=== PATIENT | male | born 1940 | race Caucasian/White ===

== ENCOUNTER 2016-06-01 17:14 | Emergency (ER) | payer BC, OTHER ==
[~2016-06-01] VITALS: Ht 165.1 cm; Wt 74.8 kg
[~2016-06-01 17:14] MED LIST: ATV5X PO; CARB25TA12 PO; RANI150T2 PO
[2016-06-01 17:23] VITALS: BP 151/84; PULSE 101; TEMP 36.5; O2SAT 96; Ht 165.1 cm; Wt 74.8 kg
[2016-12-13] MEDS ORDERED: OXYC-57 PO (09:19)
[2016-12-26] MEDS ORDERED: RIVA1TAB7 PO (13:46)
[2016-12-26] MEDS ORDERED: METH4PAK PO (13:46)
== END 2016-06-01 18:47 | disposition left against medical advice (07) ==
LOC: C.EDB 17:15
DX: R10.9 Unspecified abdominal pain (principal)

== ENCOUNTER 2016-12-11 08:57 | Inpatient (IN) | payer BC, OTHER ==
[2016-12-11] VITALS (9 sets, daily range): BP systolic 158–171; BP diastolic 73–89; PULSE 65–73; TEMP 36.4–36.6; O2SAT 97–100; Ht 165.1 cm; Wt 72.7 kg
[~2016-12-11] VITALS: Ht 165.1 cm; Wt 72.7 kg
[~2016-12-11 08:57] MED LIST changes: +CEFAZOLIN 2000 MG/60 ML D5W 60 ML IV SCH
[2016-12-11] MEDS ORDERED: SODIUM CHLORIDE 0.9% 1000ML 500 ML IV STA (09:59)
[2016-12-11] MEDS ORDERED: SODIUM CHLORIDE 0.9% 1000ML 1,000 ML IV STA (09:59)
[2016-12-11 10:28] LABS: BASO % 0.2 %; BASO ABS # 0.02 K/uL (0-0.2); COMPLETE YES; EOS % 0.6 %; HEMATOCRIT 43.9 % (42-52); IG% 0.3 %; LYMPH % 7.8 %; LYMPH ABS # 0.75 K/uL (1.2-3.4); MEAN CELL VOLUME 90.7 fL (80-100); MEAN CORPUSCULAR HEMOGLOBIN 31.4 pg (25-34); MEAN CORPUSCULAR HGB CONC 34.6 g/dl (32-36); MEAN PLATELET VOLUME 9.3 fL (7.4-10.4); MONO % 6.5 %; NEUT % 84.6 %; PLATELET COUNT 233 K/uL (130-400); RED BLOOD COUNT 4.84 M/uL (4.7-6.1); WHITE BLOOD COUNT 9.62 K/uL (4.8-10.8)
[2016-12-11 10:46] LABS: CALCIUM 8.8 mg/dl (8.5-10.1); POTASSIUM 3.7 mmol/L (3.5-5.1)
[2016-12-11 10:49] LABS: ALB/GLOB RATIO 1.1 (0.9-2)
--- NOTE | 2016-12-11 11:16 | DIAGNOSTIC IMAGING REPORT ---
ABDOMEN 2VIEW W/PA CHEST RTN HISTORY: 76 years-old Male ABDOMINAL PAIN COMPARISON: Chest radiograph 12/14/2014 TECHNIQUE: PA view of the chest with erect and supine views of the abdomen. FINDINGS: Cardiomediastinal and hilar silhouettes are within normal limits. There is atherosclerosis of the aorta. No pneumothorax, pleural effusion or focal airspace consolidation. Degenerative changes are seen about the shoulders. No pneumoperitoneum on the upright projection. Bowel gas pattern is nonobstructive. No urolithiasis identified. Mild/moderate volume of formed stool seen throughout the colon. Phleboliths are seen within the pelvis. There is mild convex left curvature of the lumbar spine with multilevel discogenic degenerative changes of the spine. Moderate degenerative changes involving the hips. IMPRESSION: 1. No acute cardiopulmonary process. 2. Nonobstructive bowel gas pattern. The above report was generated using voice recognition software. It may contain grammatical, syntax or spelling errors. Electronically signed by: Chris Cook M.D. 12/11/2016 11:14 AM Dictated Date/Time: 12/11/2016 11:13 AM
[2016-12-11] MEDS ORDERED: OPTIRAY 320 IV PRN (11:30)
[2016-12-11 11:52] LABS: URINE APPEARANCE CLEAR (CLEAR); URINE BILIRUBIN NEG (NEG); URINE COLOR YELLOW; URINE NITRITE NEG (NEG); UROBILINOGEN NEG (NEG)
[2016-12-11 12:00] LABS: MANUAL MICROSCOPIC REQUIRED? NO; REVIEW REQ? NO
--- NOTE | 2016-12-11 12:16 | DIAGNOSTIC IMAGING REPORT ---
ABD/PELVIS IV CONTRAST ONLY CT DOSE: 623.95 mGycm HISTORY: Pain LEFT ABD PAIN TECHNIQUE: Multiaxial CT images of the abdomen and pelvis were performed following the use of intravenous contrast. A dose lowering technique was utilized adhering to the principles of ALARA. COMPARISON STUDY: 06/14/2014 FINDINGS: Lung bases are clear. Liver spleen and pancreas are uniform throughout. No evidence for gallbladder distention. Kidneys negative for hydronephrosis. Unchanged 5.3 cm left renal cyst. No evidence for renal hydronephrosis. Bowel pattern is nonobstructive. Left inguinal hernia containing a focal 3.5 cm serpiginous loop of small bowel. This. Be a nonobstructive finding. May be a slight degree of associated small bowel wall thickening. Normal appendix. No evidence for pneumatosis or colonic distention. IMPRESSION: 1. 5.3 cm left renal cyst unchanged from the prior study. 2. Nonobstructive bowel pattern. 3. 3.5 cm left inguinal hernia containing a small loop of small bowel possibly with a mild component of wall thickening of the small bowel immediately proximal as well as distal to the hernia. Minimal associated inflammatory wall changes not excluded although no true obstruction is confirmed The above report was generated using voice recognition software. It may contain grammatical, syntax or spelling errors. Electronically signed by: Reymundo Branch M.D. 12/11/2016 12:14 PM Dictated Date/Time: 12/11/2016 12:08 PM
--- NOTE | 2016-12-11 12:49 | EMERGENCY ROOM VISIT NOTE ---
ED Visit Note First contact with patient: 09:27 76-year-old male with left lower quadrant abdominal pain was fully a value by Anna Don PA-C. Please see her note. I also independently evaluated the patient. CT reveals a left inguinal hernia with a loop of bowel. The patient will require further evaluation by surgery.
[2016-12-11] MEDS ORDERED: MoRPHine SULFATE 4 MG/ML 1 ML CARP\\VIAL IV STA (13:00)
[2016-12-11] MEDS ORDERED: ONDANSETRON INJ 2 MG/ML 2 ML VIAL IV STA ×2 (13:00→16:05)
--- NOTE | 2016-12-11 15:10 | History and Physical ---
History & Physical Date Dec 11, 2016. Chief Complaint left groin mass/pain History of Present Illness The patient is a 76 year old male with incarcerated left inguinal hernia. He came to ED for evaluation of abdominal pain that began acutely this morning. He states that it is sharp and constant. He was nausea but no vomiting. He had a normal bowel movement yesterday. He reports that his last oral intake was last evening. Past Medical/Surgical History Medical Problems: (1) Acid reflux (2) Arthritis (3) Intermittent abdominal pain (4) Left shoulder pain (5) No known problems (6) Parkinson disease (7) Rash (8) Rotator cuff injury (9) Stomach problems (10) Urinary frequency Additional History Hepatic Disease: No Endocrine Disorder: No Kidney Disease: Yes Hypertension: No Heart Disease: No Bleeding Tendencies: No Infectious Diseases: No Other: Parkinson's disease GERD Kidney stones Allergies Coded Allergies: No Known Allergies (Unverified , 12/11/16) Home Medications Scheduled Carbidopa/Levodopa (Sinemet 25MG/100MG), 1.5 TAB PO TIDM Ranitidine HCl (Ranitidine HCl), 150 MG PO BID Scheduled PRN Lorazepam (Lorazepam), 0.5 MG PO BID PRN for Anxiety Physical Examination Skin: warm/dry, no rash Eyes: normal inspection, EOMI, sclerae normal ENT: normal ENT inspection, pharynx normal Head: normocephalic, atraumatic Neck: supple, no adenopathy, trachea midline Respiratory/Chest: lungs clear, normal breath sounds, no respiratory distress Cardiovascular: regular rate, rhythm, no edema, no murmur Abdomen / GI: normal bowel sounds, non tender Back: normal inspection Extremities: normal inspection, normal range of motion Genitourinary - Male: normal male genitalia, normal phallus, normal testicles, + pertinent finding (incarcerated left inguinal hernia; tender; minimal erythema ) Neurologic/Psych: no motor/sensory deficits, alert, oriented x 3 Addiitonal Comments: ABD/PELVIS IV CONTRAST ONLY CT DOSE: 623.95 mGycm HISTORY: Pain LEFT ABD PAIN TECHNIQUE: Multiaxial CT images of the abdomen and pelvis were performed following the use of intravenous contrast. A dose lowering technique was utilized adhering to the principles of ALARA. COMPARISON STUDY: 06/14/2014 FINDINGS: Lung bases are clear. Liver spleen and pancreas are uniform throughout. No evidence for gallbladder distention. Kidneys negative for hydronephrosis. Unchanged 5.3 cm left renal cyst. No evidence for renal hydronephrosis. Bowel pattern is nonobstructive. Left inguinal hernia containing a focal 3.5 cm serpiginous loop of small bowel. This. Be a nonobstructive finding. May be a slight degree of associated small bowel wall thickening. Normal appendix. No evidence for pneumatosis or colonic distention. IMPRESSION: 1. 5.3 cm left renal cyst unchanged from the prior study. 2. Nonobstructive bowel pattern. 3. 3.5 cm left inguinal hernia containing a small loop of small bowel possibly with a mild component of wall thickening of the small bowel immediately proximal as well as distal to the hernia. Minimal associated inflammatory wall changes not excluded although no true obstruction is confirmed Diagnosis Incarcerated left inguinal hernia ASA Classification: ASA Class III Plan of Treatment Will plan left groin exploration nwith left inguinal hernia repair -IVF -IV abx
[2016-12-11] MEDS ORDERED: FENTANYL CITRATE INJ 50 MCG/1 ML 2 ML VIAL ONE ×2 (15:57→16:54)
[2016-12-11] MEDS ORDERED: MIDAZOLAM HCL 1 MG/ML 2ML VIAL ONE (15:57)
--- NOTE | 2016-12-11 16:07 | EMERGENCY ROOM VISIT NOTE ---
History First contact with patient: 09:27 Chief Complaint: ABDOMINAL PAIN Stated Complaint: SEVERE ABD. PAIN Nursing Triage Summary: Woke up this AM with pain in stomach, "like I want to throw up but I cant because its too painful." LBM was 2 days ago. History of Present Illness Patient is a 76-year-old male who presents to the emergency department accompanied by his for evaluation of abdominal pain that began acutely this morning. He states his symptoms woke up him up at around 7:00. He notes generalized dominant pain. He states that it is sharp and constant. He rates it an 8/10. He was nauseous, and had dry heaves but did not frankly vomit. He states it hurts to move. He reports a normal bowel movement yesterday, he does report having to strain slightly, but states the bowel movement was soft. He reports that his last oral intake was a banana and milk last evening. He feels bloated and pressure like he has gas, but cannot relieve the pressure. He denies any chest pain, palpitations or shortness of breath. He denies a back or flank pain. No history of abdominal surgeries. He has had urinary frequency for several months, he has been incontinent on occasion, and wears an adult diaper due to the urinary frequency. He has not seen a physician for this. He denies dysuria. He has not had any fevers. He has never had pain similar to this. He has never had a colonoscopy to his knowledge. He has a known inguinal hernia, that his doctor has been following. Review of Systems Review of systems as per HPI. All other systems reviewed were negative. 10 systems reviewed. Past Medical/Surgical History Medical Problems: (1) Acid reflux (2) Arthritis (3) Intermittent abdominal pain (4) Left shoulder pain (5) No known problems (6) Parkinson disease (7) Rash (8) Rotator cuff injury (9) Stomach problems (10) Urinary frequency Electronic medical records are reviewed and summarized as above/below. See Problem List. Family History FH: heart disease Kidney disease Kidney stones Social History Smoking Status: Former Smoker Drug Use: none Marital Status: Housing Status: lives with family Occupation Status: employed Current/Historical Medications Scheduled Carbidopa/Levodopa (Sinemet 25MG/100MG), 1.5 TAB PO TIDM Ranitidine HCl (Ranitidine HCl), 150 MG PO BID Scheduled PRN Lorazepam (Lorazepam), 0.5 MG PO BID PRN for Anxiety Physical Exam Vital Signs Date Time Temp Pulse Resp B/P (MAP) Pulse Ox O2 Delivery O2 Flow Rate FiO2 12/11/16 15:54 36.6 68 16 176/76 (109) 96 Room Air 12/11/16 15:00 70 18 164/89 98 Room Air 12/11/16 14:06 72 12/11/16 12:56 66 20 166/72 97 Room Air 12/11/16 11:18 61 18 136/66 97 Room Air 12/11/16 10:10 66 12/11/16 10:07 65 20 179/91 96 Room Air 12/11/16 09:02 36.4 68 17 156/92 99 Room Air Physical Exam CONSTITUTIONAL: Patient is an uncomfortable, elderly 76-year-old male who is awake and alert and in mild distress due to his abdominal discomfort. EYES: Pupils equal, round, reactive to light and accommodation. EOMs intact without nystagmus. Sclera are anicteric. ENT: Tympanic membranes intact, with normal landmarks. External canals are clear. Oral and nasopharynx are clear. Mucous membranes are moist, no lesions , tongue and gums appear normal. NECK: No bruits auscultated. Supple without lymphadenopathy. No thyromegaly. No meningeal signs. Full active range of motion without discomfort. CARDIOVASCULAR: Regular rate and rhythm, with normal S1 and S2, no murmur or gallop or rub is heard. No carotid bruits auscultated. No JVD. Peripheral pulses easily palpable. RESPIRATORY: Breath sounds equal and clear to auscultation without wheezes, rales, or rhonchi heard. Full and equal chest expansion without accessory muscle use or retractions. ABDOMEN: Bowel sounds are present. Abdomen is soft, nondistended, nontender to percussion throughout. He is tender to palpation, primarily the left lower quadrant, there is no guarding or rebound. Tender left inguinal hernia noted. INTEGUMENTARY: No lesions or rash, normal skin turgor. LYMPH: No lymphadenopathy. Medical Decision & Procedures ER Provider Diagnostic Interpretation: ABD/PELVIS IV CONTRAST ONLY CT DOSE: 623.95 mGycm HISTORY: Pain LEFT ABD PAIN TECHNIQUE: Multiaxial CT images of the abdomen and pelvis were performed following the use of intravenous contrast. A dose lowering technique was utilized adhering to the principles of ALARA. COMPARISON STUDY: 06/14/2014 FINDINGS: Lung bases are clear. Liver spleen and pancreas are uniform throughout. No evidence for gallbladder distention. Kidneys negative for hydronephrosis. Unchanged 5.3 cm left renal cyst. No evidence for renal hydronephrosis. Bowel pattern is nonobstructive. Left inguinal hernia containing a focal 3.5 cm serpiginous loop of small bowel. This. Be a nonobstructive finding. May be a slight degree of associated small bowel wall thickening. Normal appendix. No evidence for pneumatosis or colonic distention. IMPRESSION: 1. 5.3 cm left renal cyst unchanged from the prior study. 2. Nonobstructive bowel pattern. 3. 3.5 cm left inguinal hernia containing a small loop of small bowel possibly with a mild component of wall thickening of the small bowel immediately proximal as well as distal to the hernia. Minimal associated inflammatory wall changes not excluded although no true obstruction is confirmed ABDOMEN 2VIEW W/PA CHEST RTN HISTORY: 76 years-old Male ABDOMINAL PAIN COMPARISON: Chest radiograph 12/14/2014 TECHNIQUE: PA view of the chest with erect and supine views of the abdomen. FINDINGS: Cardiomediastinal and hilar silhouettes are within normal limits. There is atherosclerosis of the aorta. No pneumothorax, pleural effusion or focal airspace consolidation. Degenerative changes are seen about the shoulders. No pneumoperitoneum on the upright projection. Bowel gas pattern is nonobstructive. No urolithiasis identified. Mild/moderate volume of formed stool seen throughout the colon. Phleboliths are seen within the pelvis. There is mild convex left curvature of the lumbar spine with multilevel discogenic degenerative changes of the spine. Moderate degenerative changes involving the hips. IMPRESSION: 1. No acute cardiopulmonary process. 2. Nonobstructive bowel gas pattern. Laboratory Results 12/11/16 10:10 Red Blood Count 4.84, Mean Corpuscular Volume 90.7, Mean Corpuscular Hemoglobin 31.4, Mean Corpuscular Hemoglobin Concent 34.6, Mean Platelet Volume 9.3, Neutrophils (%) (Auto) 84.6, Lymphocytes (%) (Auto) 7.8, Monocytes (%) (Auto) 6.5, Eosinophils (%) (Auto) 0.6, Basophils (%) (Auto) 0.2, Neutrophils # (Auto) 8.13, Lymphocytes # (Auto) 0.75, Monocytes # (Auto) 0.63, Eosinophils # (Auto) 0.06, Basophils # (Auto) 0.02 12/11/16 10:10 Test 12/11/16 10:10 12/11/16 11:30 White Blood Count 9.62 K/uL (4.8-10.8) Red Blood Count 4.84 M/uL (4.7-6.1) Hemoglobin 15.2 g/dL (14.0-18.0) Hematocrit 43.9 % (42-52) Mean Corpuscular Volume 90.7 fL (80-100) Mean Corpuscular Hemoglobin 31.4 pg (25-34) Mean Corpuscular Hemoglobin Concent 34.6 g/dl (32-36) Platelet Count 233 K/uL (130-400) Mean Platelet Volume 9.3 fL (7.4-10.4) Neutrophils (%) (Auto) 84.6 % Lymphocytes (%) (Auto) 7.8 % Monocytes (%) (Auto) 6.5 % Eosinophils (%) (Auto) 0.6 % Basophils (%) (Auto) 0.2 % Neutrophils # (Auto) 8.13 K/uL (1.4-6.5) Lymphocytes # (Auto) 0.75 K/uL (1.2-3.4) Monocytes # (Auto) 0.63 K/uL (0.11-0.59) Eosinophils # (Auto) 0.06 K/uL (0-0.5) Basophils # (Auto) 0.02 K/uL (0-0.2) RDW Standard Deviation 45.8 fL (36.4-46.3) RDW Coefficient of Variation 13.7 % (11.5-14.5) Immature Granulocyte % (Auto) 0.3 % Immature Granulocyte # (Auto) 0.03 K/uL (0.00-0.02) Anion Gap 6.0 mmol/L (3-11) Est Creatinine Clear Calc Drug Dose 53.8 ml/min Estimated GFR () 83.8 Estimated GFR (Non- 72.3 BUN/Creatinine Ratio 18.0 (10-20) Calcium Level 8.8 mg/dl (8.5-10.1) Total Bilirubin 0.8 mg/dl (0.2-1) Aspartate Amino Transf (AST/SGOT) 16 U/L (15-37) Alanine Aminotransferase (ALT/SGPT) 22 U/L (12-78) Alkaline Phosphatase 93 U/L (45-117) Total Protein 7.6 gm/dl (6.4-8.2) Albumin 3.9 gm/dl (3.4-5.0) Globulin 3.7 gm/dl (2.5-4.0) Albumin/Globulin Ratio 1.1 (0.9-2) Lipase 76 U/L (73-393) Urine Color YELLOW Urine Appearance CLEAR (CLEAR) Urine pH 7.0 (4.5-7.5) Urine Specific [place] 1.020 (1.000-1.030) Urine Protein NEG (NEG) Urine Glucose (UA) NEG (NEG) Urine Ketones NEG (NEG) Urine Occult Blood NEG (NEG) Urine Nitrite NEG (NEG) Urine Bilirubin NEG (NEG) Urine Urobilinogen NEG (NEG) Urine Leukocyte Esterase NEG (NEG) Medications Administered Medications (Trade) Dose Ordered Sig/Bernardino Route Start Time Stop Time Status Last Admin Dose Admin Sodium Chloride 500 ml @ 999 mls/hr Q31M STAT IV 12/11/16 09:59 12/11/16 10:29 DC 12/11/16 10:34 999 MLS/HR Sodium Chloride 1,000 ml @ 250 mls/hr Q4H STAT IV 12/11/16 09:59 12/11/16 13:58 DC 12/11/16 11:17 250 MLS/HR Ondansetron HCl (Zofran Inj) 4 mg NOW STAT IV 12/11/16 13:00 12/11/16 13:01 DC 12/11/16 13:05 4 MG Morphine Sulfate (MoRPHine SULFATE INJ) 4 mg NOW STAT IV 12/11/16 13:00 12/11/16 13:01 DC 12/11/16 13:05 4 MG ED Course The patient was seen and evaluated as above. His old records were reviewed. IV lock was needed and he was hydrated with normal saline solution. He initially declined any medication for discomfort. CBC with differential, CMP, lipase and urinalysis were collected. Acute abdominal series was obtained and did not demonstrate any evidence for obstruction. Laboratory studies noted a normal white count of 9000 100, H&H 15 and 43. Electrolytes are within normal limits. Liver functions are not elevated. Lipase is normal. Urinalysis clear without signs of infection. CT scan of the abdomen and pelvis with IV contrast was obtained and consistent with a left inguinal hernia containing a small loop of small bowel. Given his physical exam findings, there was concern for an incarcerated hernia. Laboratory and diagnostic imaging studies were reviewed with attending physician , who also evaluated the patient. History and presentation were discussed with general surgery, Dr. Torres, who evaluated the patient in the ER and will take him to the OR for surgical intervention. Differential diagnoses entertained included diverticulitis, UTI, pyelonephritis , renal colic, mass or malignancy, bowel obstruction, perforation, incarcerated hernia, among others. Medical Decision See Emergency Department course. Medication Reconcilliation Current Medication List: was personally reviewed by me Blood Pressure Screening Patient's blood pressure: Elevated blood pressure Blood pressure disposition: Elevated BP felt to be situational Impression Primary Impression: Incarcerated left inguinal hernia Departure Information Dispostion Being Evaluated By Surgeon Referrals Neville Sosa M.D. (PCP) Patient Instructions My [facility]
[2016-12-11] MEDS ORDERED: NURSING VERBAL MED ORDER ONE (16:15)
[2016-12-11] MEDS ORDERED: BUPIVACAINE/EPINEPHRINE 0.5% MPF 1:200,000 10 ML VIAL ONE (16:16)
[2016-12-11] MEDS ORDERED: MAGNESIUM HYDROXIDE SUSP 30 ML UDC PO PRN (16:30)
[2016-12-11] MEDS ORDERED: ACETAMINOPHEN 325 MG TAB PO PRN (16:30)
[2016-12-11] MEDS ORDERED: MoRPHine SULFATE 2 MG/ML CARP IV PRN (16:30)
[2016-12-11] MEDS ORDERED: OXYCODONE/ACETAMINOPHEN 5-325 TAB PO PRN (16:30)
[2016-12-11] MEDS ORDERED: FENTANYL CITRATE INJ 50 MCG/1 ML 2 ML VIAL IV PRN (16:30)
[2016-12-11] MEDS ORDERED: ATROPINE SULFATE 0.1 MG/ML 5ML SYR IV PRN (16:30)
[2016-12-11] MEDS ORDERED: ONDANSETRON INJ 2 MG/ML 2 ML VIAL IV PRN ×2 (16:30)
[2016-12-11] MEDS ORDERED: ALUMINUM/MAGNESIUM/SIMETH (MAALOX MAX) 30 ML UDC PO PRN (16:30)
[2016-12-11] MEDS ORDERED: PROPOFOL IV EMULSION 10 MG/ML 20 ML VIAL IV ONE (16:54)
[2016-12-11] MEDS ORDERED: PHENYLEPHRINE 100MCG/ML 5ML SYR ONE (16:54)
[2016-12-11] MEDS ORDERED: LIDOCAINE HCL 2% 2 ML VIAL (20MG/ML) ONE (16:54)
[2016-12-11] MEDS ORDERED: MoRPHine SULFATE 4 MG/ML 1 ML CARP\\VIAL IV PRN (17:00)
--- NOTE | 2016-12-11 17:26 | [facility] Post Operative Brief Note ---
Immediate Operative Summary Operative Date Dec 11, 2016. Pre-Operative Diagnosis Incarcerated Left Inguinal Hernia Post-Operative Diagnosis Incarcerated Left Inguinal Hernia Procedure(s) Performed Left Inguinal Hernia Repair with Mesh, Left Groin Exploration Surgeon Dr. Torres Pathology Tech Surgeon(s) None Estimated Blood Loss 25cc Findings Reduced SB intra-op Specimens Specimen A. Hernia sack and cord lipoma Drains none Anesthesia GETA w/marcaine Complication(s) None Disposition Recovery Room / PACU
[2016-12-11] MEDS ORDERED: EpHEDrine SULFATE 50MG/5ML SYR ONE (17:45)
[2016-12-11] MEDS ORDERED: DEXAMETHASONE SOD INJ 4 MG/ML VIAL ONE (17:45)
[2016-12-11] MEDS ORDERED: ONDANSETRON INJ 2 MG/ML 2 ML VIAL ONE (17:45)
--- NOTE | 2016-12-11 18:28 | Anesthesiology Progress Note ---
Anesthesia Post Op Note Date & Time Dec 11, 2016 at 18:28 Vital Signs Pain Intensity: 0 Vital Signs Past 12 Hours Date Time Temp Pulse Resp B/P (MAP) Pulse Ox O2 Delivery O2 Flow Rate FiO2 12/11/16 18:07 36.8 72 16 145/80 100 Nasal Cannula 10 12/11/16 17:57 73 13 12/11/16 17:57 74 13 100 12/11/16 17:56 146/78 12/11/16 17:52 73 14 99 12/11/16 17:52 73 14 12/11/16 17:51 148/78 12/11/16 17:47 82 14 98 12/11/16 17:47 80 14 12/11/16 17:46 74 15 12/11/16 17:46 76 15 149/77 98 12/11/16 17:41 82 14 12/11/16 17:41 82 14 155/80 99 12/11/16 17:36 88 23 145/81 100 12/11/16 17:36 88 23 12/11/16 17:32 155/96 12/11/16 17:31 91 18 99 12/11/16 17:31 36.5 90 16 155/96 99 Mask 10 12/11/16 17:31 91 18 12/11/16 15:54 36.6 68 16 176/76 (109) 96 Room Air 12/11/16 15:00 70 18 164/89 98 Room Air 12/11/16 14:06 72 12/11/16 12:56 66 20 166/72 97 Room Air 12/11/16 11:18 61 18 136/66 97 Room Air 12/11/16 10:10 66 12/11/16 10:07 65 20 179/91 96 Room Air 12/11/16 09:02 36.4 68 17 156/92 99 Room Air Notes Mental Status: alert / awake / arousable, participated in evaluation Pt Amnestic to Procedure: Yes Nausea / Vomiting: adequately controlled Pain: adequately controlled Airway Patency, RR, SpO2: stable & adequate BP & HR: stable & adequate Hydration State: stable & adequate Anesthetic Complications: no major complications apparent
[2016-12-11] MEDS: SODIUM CHLORIDE 0.9% 1000ML 1,000 ML IV SCH (19:04)
[2016-12-11] MEDS: CEFAZOLIN IV 2,000 MG in DEXTROSE 5% 50ML 50 ML IV SCH (19:40)
--- NOTE | 2016-12-11 20:45 | OPERATIVE REPORT ---
DATE OF OPERATION: 12/11/2016 PREOPERATIVE DIAGNOSIS: Incarcerated left inguinal hernia. POSTOPERATIVE DIAGNOSIS: Same. PROCEDURE PERFORMED: Left inguinal hernia repair with plug and patch mesh. SURGEON: Tomas Torres MD [employer] INVESTIGATOR: None. ANESTHESIA: General endotracheal with 0.5% Marcaine with epinephrine local. ESTIMATED BLOOD LOSS: 25 mL. DRAINS: None. COMPLICATIONS: None. SPECIMENS: Cord lipoma and hernia sac. INDICATION FOR PROCEDURE: This is a 76-year-old white male who was seen in the ER with complaints of acute abdominal pain and a left groin mass. On exam, he had an incarcerated hernia. He previously had a CT scan done by the Emergency Department which showed a small bowel within his left inguinal hernia. This is a known hernia has had for years. I talked to him in detail about this and recommended groin exploration with repair. I talked to him about the risk of having possible bowel resection. He also understands the risk of recurrence. I told him that depending on the conditions, we may or may not use mesh to repair the hernia. DESCRIPTION OF PROCEDURE: The patient was taken to the OR and underwent excellent general endotracheal anesthesia. His abdomen was prepped and draped in normal sterile fashion. Transverse oblique incision was made in his left groin. Dissection was taken down to identify his Patti fascia. This was incised and the fascia of the external oblique was identified. You could see a small bowel within the sac, this was reduced easily. The small bowel appeared to be intact with no ischemic component. Once this was done, an incision was made in the external oblique, this was extended through the external ring and proximally. The cord and the edematous hernia sac was then dissected free. Lyons drain was used to encircle these contents. Ilioinguinal nerve was identified and it was sacrificed. Once the sac was identified, this was taken down to its base. The sac was entered into and highly ligated with an Ethibond suture. The hernia sac and a small cord lipoma were removed and sent for pathologic evaluation. A small plug was placed in this defect and secured with an Ethibond suture. A piece of patch mesh was then placed in the floor and secured to the shelving edge of the inguinal ligament inferiorly and the conjoined tendon superiorly. The leaves were then reapproximated to recreate the internal ring. Cord was placed back in good position, as the Kyaw was taken out. The internal ring was not too tight and the cord showed good blood supply into the testicle. Once this was done, external oblique was reapproximated with an Ethibond suture. 0.5% Marcaine with epinephrine local was used to create a local field block. A running 2-0 Vicryl suture was used to close the Patti fascia. Interrupted 3-0 Vicryl was used to close the subQ space. 0.5% Marcaine with epinephrine local was used to create a local field block. Ben were used to close the skin. Sterile dressing was applied. The patient tolerated the procedure well without complications, sent to post-recovery for a period of observation and be discharged up to his room once he meets criteria. I attest to the content of the Intraoperative Record and any orders documented therein. Any exception s are noted below.
[2016-12-12] MEDS: SODIUM CHLORIDE 0.9% 1000ML 1,000 ML IV SCH ×2 (02:08→13:16)
[2016-12-12 03:34] VITALS: BP 137/72; PULSE 69; TEMP 36.4; O2SAT 99
[2016-12-12] MEDS: CEFAZOLIN IV 2,000 MG in DEXTROSE 5% 50ML 50 ML IV SCH ×3 (04:13→20:26)
[2016-12-12 06:57] VITALS: BP 165/86; PULSE 90; TEMP 36.7; O2SAT 95
[2016-12-12 07:03] VITALS: BP 138/73; PULSE 72; TEMP 36.5; O2SAT 96
[2016-12-12 09:00] VITALS: PULSE 60
[2016-12-12] MEDS: CARBIDOPA/LEVODOPA 25/100MG TAB PO SCH ×3 (09:21→17:29)
--- NOTE | 2016-12-12 10:19 | Surgery Progress Note ---
Surgery Progress Note Date of Service Dec 12, 2016. Subjective Post OP Day: 1 + feeling well, + complaints (pain), + flatus, + diet (clears), No bowel movement, No nausea, No vomiting Objective Vital Signs: Date Time Temp Pulse Resp B/P (MAP) Pulse Ox O2 Delivery O2 Flow Rate FiO2 12/12/16 09:00 60 12/12/16 07:45 Room Air 12/12/16 07:03 36.5 72 18 138/73 (94) 96 Room Air 12/12/16 03:34 36.4 69 16 137/72 (93) 99 Nasal Cannula 2.0 12/11/16 23:40 Nasal Cannula 2.0 12/11/16 22:48 36.5 72 16 158/73 (101) 99 Nasal Cannula 2.0 12/11/16 22:11 68 164/78 (106) 12/11/16 21:35 36.5 70 16 166/82 (110) 97 Nasal Cannula 2.0 12/11/16 20:39 36.4 73 16 171/89 (116) 98 Nasal Cannula 2.0 12/11/16 19:35 36.6 68 16 170/84 (112) 98 Nasal Cannula 2.0 12/11/16 19:05 36.6 65 16 166/84 (111) 100 Nasal Cannula 2.0 12/11/16 18:54 99 Nasal Cannula 2.0 12/11/16 18:40 36.5 67 18 165/89 99 Nasal Cannula 2.0 12/11/16 18:35 36.5 67 18 165/89 (114) 99 Nasal Cannula 2.0 12/11/16 18:07 36.8 72 16 145/80 100 Nasal Cannula 10 12/11/16 17:57 73 13 12/11/16 17:57 74 13 100 12/11/16 17:56 146/78 12/11/16 17:52 73 14 99 12/11/16 17:52 73 14 12/11/16 17:51 148/78 12/11/16 17:47 82 14 98 12/11/16 17:47 80 14 12/11/16 17:46 74 15 12/11/16 17:46 76 15 149/77 98 12/11/16 17:41 82 14 12/11/16 17:41 82 14 155/80 99 12/11/16 17:36 88 23 145/81 100 12/11/16 17:36 88 23 12/11/16 17:32 155/96 12/11/16 17:31 91 18 99 12/11/16 17:31 36.5 90 16 155/96 99 Mask 10 12/11/16 17:31 91 18 12/11/16 15:54 36.6 68 16 176/76 (109) 96 Room Air 12/11/16 15:00 70 18 164/89 98 Room Air 12/11/16 14:06 72 12/11/16 12:56 66 20 166/72 97 Room Air 12/11/16 11:18 61 18 136/66 97 Room Air General Appearance: WD/WN, no apparent distress Head: normocephalic, atraumatic Neck: supple, trachea midline Respiratory/Chest: lungs clear Cardiovascular: regular rate, rhythm Abdomen: normal bowel sounds, non tender, non distended, soft Incision(s): clean, dry, intact Extremities: non-tender, no pedal edema Laboratory Results: Results Past 24 Hours Test 12/11/16 11:30 Range/Units Urine Color YELLOW Urine Appearance CLEAR CLEAR Urine pH 7.0 4.5-7.5 Urine Specific [place] 1.020 1.000-1.030 Urine Protein NEG NEG Urine Glucose (UA) NEG NEG Urine Ketones NEG NEG Urine Occult Blood NEG NEG Urine Nitrite NEG NEG Urine Bilirubin NEG NEG Urine Urobilinogen NEG NEG Urine Leukocyte Esterase NEG NEG Assessment & Plan s/p L IH repair with incarcerated SB -denies abdominal apin, will watch 1 more day for signs of ischemia -clears -increase activity -possibly home in AM if does well
[2016-12-12] MEDS ORDERED: PANTOprazole INJ 40 MG in SYRINGE 0 ML IV SCH (11:00)
[2016-12-12 15:56] VITALS: BP 145/80; PULSE 66; TEMP 36.7; O2SAT 100
[2016-12-12 23:10] VITALS: BP 152/76; PULSE 67; TEMP 36.8; O2SAT 94
[2016-12-13] MEDS: CEFAZOLIN IV 2,000 MG in DEXTROSE 5% 50ML 50 ML IV SCH (03:53)
[2016-12-13 07:11] VITALS: BP 160/66; PULSE 67; TEMP 36.5; O2SAT 98
[2016-12-13] MEDS: CARBIDOPA/LEVODOPA 25/100MG TAB PO SCH (09:07)
[2016-12-13] MEDS: SODIUM CHLORIDE 0.9% 1000ML 1,000 ML IV SCH (09:07)
--- NOTE | 2016-12-13 09:18 | Surgery Progress Note ---
Surgery Progress Note Date of Service Dec 13, 2016. Subjective Post OP Day: 2 + feeling well Objective Vital Signs: Date Time Temp Pulse Resp B/P (MAP) Pulse Ox O2 Delivery O2 Flow Rate FiO2 12/13/16 08:00 Room Air 12/13/16 07:11 36.5 67 20 160/66 (97) 98 Room Air 12/12/16 23:50 Room Air 12/12/16 23:10 36.8 67 16 152/76 (101) 94 Room Air 12/12/16 19:10 Room Air 12/12/16 15:56 36.7 66 18 145/80 (101) 100 Room Air 12/12/16 15:27 Room Air General Appearance: WD/WN, no apparent distress Head: normocephalic, atraumatic Incision(s): clean, dry, intact Extremities: non-tender, no pedal edema Assessment & Plan s/p L IH repair with incarcerated SB -doing well -home
[2016-12-13] MEDS ORDERED: OXYC-57 PO (09:19)
--- NOTE | 2016-12-13 09:21 | Discharge Instructions ---
Discharge Instructions Date of Service Dec 13, 2016. Admission Reason for Admission: Incarcerated Left Inguinal Hernia Discharge Discharge Diagnosis / Problem: Incarcerated Left Inguinal Hernia Discharge Goals Goal(s): Therapeutic intervention Activity Recommendations Activity Limitations: per Instructions/Follow-up section Lifting Limitations: no more than 25 pounds Exercise/Sports Limitations: until after follow-up appointment May Resume Sexual Activity: when tolerated Shower/Bathe: no limitations Driving or Machine Use: resume 3 days after discharge . Instructions / Follow-Up Instructions / Follow-Up Brian; 2 weeks; [phone] Current Hospital Diet Patient's current hospital diet: Regular Diet Discharge Diet Recommended Diet: Regular Diet Procedures Procedures Performed: Left Inguinal Hernia Repair with Mesh, Left Groin Exploration Pending Studies Studies pending at discharge: no Work Instructions Return To Work: after follow-up Lifting Limitations: no more than 20 pounds Additional Instructions: No work until evaluated in clinic Medical Emergencies . Who to Call and When: Medical Emergencies: If at any time you feel your situation is an emergency, please call 911 immediately. . Non-Emergent Contact Non-Emergency issues call your: Primary Care Provider, Surgeon Call Non-Emergent contact if: temperature is above 101.5, your pain is not controlled, your pain is worsening, your pain is unusual for you, your pain is concerning you, wound has increased redness, wound has increased pain, you have any medication questions . "Provider Documentation" section prepared by Tomas Torres. . VTE Core Measure Inpt VTE Proph given/why not?: SCD's [place] Drug Monitoring Program Search Results: patient reviewed within database
[2016-12-13 10:01] VITALS: BP 160/66; PULSE 67; TEMP 36.5; O2SAT 98
--- NOTE | 2016-12-13 10:32 | DISCHARGE SUMMARY ---
DIAGNOSES: 1. Incarcerated left inguinal hernia. 2. Parkinson's disease. 3. Reflux. 4. Anxiety. ATTENDING PHYSICIAN: Dr. Tomas Torres. PROCEDURE PERFORMED: Left groin exploration with reduction of incarcerated hernia and repair of said hernia. HISTORY OF PRESENT ILLNESS: This is a 76-year-old male who was admitted through the ER with incarcerated left inguinal hernia. He was taken to the OR and will undergo an exploration. HOSPITAL COURSE: The patient was taken to the OR and underwent exploration. He had a small-bowel segment which was within the sac, this was reduced. Small-bowel appeared to be normal. Once this was done, the hernia was repaired with a plug and patch of mesh. He did well postoperatively. He was a little slow with his activity but this improved by postoperative day #2. He was tolerating a regular diet, had good pain control and he will be discharged home on postoperative day #2. DISCHARGE MEDICATIONS: Percocet 1 tablet p.o. q. 4 hours p.r.n. pain, Sinemet 1.5 tablets p.o. 2 times a day, lorazepam 0.5 mg p.o. b.i.d. p.r.n., Zantac 150 mg p.o. b.i.d. DIET: Regular as tolerated. ACTIVITY: No strenuous activity for 4 weeks. FOLLOWUP: 2 weeks in my office.
[2016-12-26] MEDS ORDERED: METH4PAK PO (13:46)
[2016-12-26] MEDS ORDERED: RIVA1TAB7 PO (13:46)
== END 2016-12-13 10:25 | disposition home or self-care (01) | DRG 352 ==
LOC: C.EDB 08:58 → C.3E 16:25 → ENRESERV 18:18
PROVIDERS: ADMIT Surgery; ATTEND Surgery
PROC: 0YQ60ZZ Repair Left Inguinal Region, Open Approach (ICD-10-PCS; principal; 2016-12-11 08:45)
DX: K40.30 Unilateral inguinal hernia, with obstruction, without gangrene, not specified as recurrent (principal); K21.9 Gastro-esophageal reflux disease without esophagitis; G20 Parkinson's disease; F41.9 Anxiety disorder, unspecified

== ENCOUNTER 2016-12-23 16:57 | Inpatient (IN) | payer BC, OTHER ==
[~2016-12-23] VITALS: Ht 165.1 cm; Wt 71.0 kg
[~2016-12-23 16:57] MED LIST changes: -CEFAZOLIN 2000 MG/60 ML D5W 60 ML IV SCH; +OXYC-57 PO
[2016-12-23 17:31] LABS: BASO % 0.4 %; BASO ABS # 0.03 K/uL (0-0.2); COMPLETE YES; EOS % 3.1 %; HEMATOCRIT 37.8 % (42-52); IG% 0.3 %; LYMPH % 15.2 %; LYMPH ABS # 1.18 K/uL (1.2-3.4); MEAN CELL VOLUME 89.2 fL (80-100); MEAN CORPUSCULAR HEMOGLOBIN 30.9 pg (25-34); MEAN CORPUSCULAR HGB CONC 34.7 g/dl (32-36); MEAN PLATELET VOLUME 8.7 fL (7.4-10.4); MONO % 8.9 %; NEUT % 72.1 %; PLATELET COUNT 238 K/uL (130-400); RED BLOOD COUNT 4.24 M/uL (4.7-6.1); WHITE BLOOD COUNT 7.74 K/uL (4.8-10.8)
[2016-12-23 17:38] LABS: PARTIAL THROMBOPLASTIN RATIO 1.2; PROTHROMBIN TIME (PATIENT) 11.1 SECONDS (9.0-12.0)
[2016-12-23 17:52] LABS: BUN/CREATININE RATIO 20.5 (10-20); CALCIUM 8.6 mg/dl (8.5-10.1); CREATININE 0.94 mg/dl (0.60-1.40); POTASSIUM 3.6 mmol/L (3.5-5.1)
[2016-12-23] MEDS ORDERED: OPTIRAY 320 IV PRN (18:15)
[2016-12-23] MEDS ORDERED: LORAZEPAM 0.5 MG TAB PO PRN (18:45)
--- NOTE | 2016-12-23 18:53 | DIAGNOSTIC IMAGING REPORT ---
CT ANGIOGRAM OF THE CHEST CLINICAL HISTORY: Cough. COMPARISON STUDY: Chest radiograph dated 12/11/2016. TECHNIQUE: Following the IV administration of 92 cc of Optiray 320, CT angiogram of the chest was performed from the upper abdomen to the thoracic inlet utilizing the pulmonary embolus protocol. Images are reviewed in the axial, sagittal, and coronal planes. 3-D MIPS images are created and assessed. IV contrast was administered without complication. A dose lowering technique was utilized adhering to the principles of ALARA. Examination is degraded by streak artifact from the patient's arms which could not be elevated above the chest. CT DOSE: 413.39 mGy.cm FINDINGS: Thyroid: Imaged portions of the thyroid gland are normal in size and attenuation. Thoracic aorta: There is atherosclerotic calcification of the thoracic aorta, which is normal in caliber and demonstrates standard 3-vessel arch anatomy. No dissection is seen. Pulmonary vasculature: The pulmonary trunk is normal in caliber. There are filling defects within segmental and subsegmental branches of the right lower lobe consistent with pulmonary emboli. The remaining pulmonary vessels are clear. Heart: The heart is normal in size and configuration, and without pericardial effusion. Lungs and pleural spaces: Evaluation of the lung parenchyma is degraded by motion artifact. Mild emphysematous change is noted. There is no airspace consolidation or pleural effusion. Dependent atelectasis is observed. The trachea and central airways are clear. Mediastinum: There is no mediastinal lymphadenopathy. Paula: Clear. Axillae: There is no axillary lymphadenopathy. Upper abdomen: There is a small hiatal hernia. A left renal cyst is partially imaged. Partially visualized upper abdominal viscera is otherwise within normal limits. Skeletal structures: The skeletal structures are osteopenic. No lytic or blastic bony lesions are seen. IMPRESSION: 1. There are segmental and subsegmental pulmonary emboli within branches of the right lower lobe pulmonary artery. 2. Emphysema. 3. No airspace consolidation or pleural effusion is identified. 4. Additional findings as above. Electronically signed by: David Tobias M.D. 12/23/2016 6:52 PM Dictated Date/Time: 12/23/2016 6:46 PM
--- NOTE | 2016-12-23 19:24 | EMERGENCY ROOM VISIT NOTE ---
History Report prepared by Fausto: Dinora Pat Under the Supervision of: Dr. Alexis Guillen M.D. First contact with patient: 17:07 Chief Complaint: LEG PAIN,LEG INJURY Stated Complaint: POSSIBLE CLOT IN LEG, SENT FROM History of Present Illness The patient is a 76 year old male who presents to the Emergency Room with complaints of persistent right leg pain and swelling starting several days ago. The patient was sent to the ED by his PCP after an ultrasound found a DVT in his leg. He had hernia surgery 12 days ago. The incision is healing well. He notes he has had a cough since being discharged from the hospital. He denies any toe pain, chest pain, SOB, fever, chills, pain with breathing, bleeding, hematochezia, or melena. He denies any injury or twisting of his leg. He denies any history of blood clot. He has not been on blood thinners before. Source of History: patient, family, spouse/significant other Onset: several days ago Position: leg (right) Quality: other (pain) Timing: other (persistent) Associated Symptoms: + cough, No fevers, No chills, No chest pain, No SOB, No melena, No hematochezia Note: Pt denies toe pain, bleeding, pain with breathing. Review of Systems See HPI for pertinent positives & negatives. A total of 10 systems reviewed and were otherwise negative. Past Medical & Surgical Medical Problems: (1) Acid reflux (2) Anxiety (3) GERD (gastroesophageal reflux disease) (4) Left shoulder pain (5) Parkinson disease (6) Parkinson's disease (7) Rotator cuff injury (8) Stomach problems (9) Urinary frequency Surgical Problems: (1) Hx of left inguinal hernia repair Old medical records were reviewed. Nurse's notes were reviewed and I agree with. No history of DVT/PE. No history of anticoagulation use Family History FH: heart disease Kidney disease Kidney stones Social History Smoking Status: Former Smoker Drug Use: none Marital Status: Housing Status: lives with family Occupation Status: employed Current/Historical Medications Scheduled Carbidopa/Levodopa (Sinemet 25MG/100MG), 1.5 TAB PO TIDM Ranitidine HCl (Ranitidine HCl), 150 MG PO BID Scheduled PRN Lorazepam (Lorazepam), 0.5 MG PO BID PRN for Anxiety Oxycodone/Acetaminophen 5MG/325MG (Percocet 5MG/325MG), 1 TABLET PO Q4H PRN for Pain Allergies Coded Allergies: Latex1 -Allergic Contact Dermititis (Unverified Allergy, Intermediate, RASH, 12/23/16) Physical Exam Vital Signs Date Time Temp Pulse Resp B/P (MAP) Pulse Ox O2 Delivery O2 Flow Rate FiO2 12/23/16 17:02 37.0 83 20 165/78 95 Room Air Physical Exam General: Non ill appearing older male in no acute distress, occasional dry cough. Well developed well nourished, breathing comfortably on room air. Normal speech HEENT: Normal cephalic atraumatic. Pupils are equal round and reactive to light. Extraocular movements are intact. Oropharynx is pink with moist mucous membranes. No swelling of the mouth lips or tongue. Neck: Supple with a midline trachea. No meningeal signs or stiffness, no JVD or bruits. No Stridor. Chest: Clear to auscultation bilaterally. No wheezes or rhonchi. No increased work of breathing. Heart: regular rate and rhythm. Abdomen: Soft nontender, nondistended without rebound guarding or rigidity. Well healing incision in the left groin from his hernia repair Extremities: Right leg is moderately swollen in the calf compared to the left, 2 + distal pulses, normal motor and sensation. Spine/Back. Non tender to palpation. No CVA tenderness Skin: Good turgor without rashes. Neurologic exam: Cranial nerves two through 12 are intact. Motor and sensation are intact and symmetrical throughout. Medical Decision & Procedures ER Provider Diagnostic Interpretation: Radiology results as stated below per my review and radiologist interpretation: CT ANGIOGRAM OF THE CHEST CLINICAL HISTORY: Cough. COMPARISON STUDY: Chest radiograph dated 12/11/2016. TECHNIQUE: Following the IV administration of 92 cc of Optiray 320, CT angiogram of the chest was performed from the upper abdomen to the thoracic inlet utilizing the pulmonary embolus protocol. Images are reviewed in the axial, sagittal, and coronal planes. 3-D MIPS images are created and assessed. IV contrast was administered without complication. A dose lowering technique was utilized adhering to the principles of ALARA. Examination is degraded by streak artifact from the patient's arms which could not be elevated above the chest. CT DOSE: 413.39 mGy.cm FINDINGS: Thyroid: Imaged portions of the thyroid gland are normal in size and attenuation. Thoracic aorta: There is atherosclerotic calcification of the thoracic aorta, which is normal in caliber and demonstrates standard 3-vessel arch anatomy. No dissection is seen. Pulmonary vasculature: The pulmonary trunk is normal in caliber. There are filling defects within segmental and subsegmental branches of the right lower lobe consistent with pulmonary emboli. The remaining pulmonary vessels are clear. Heart: The heart is normal in size and configuration, and without pericardial effusion. Lungs and pleural spaces: Evaluation of the lung parenchyma is degraded by motion artifact. Mild emphysematous change is noted. There is no airspace consolidation or pleural effusion. Dependent atelectasis is observed. The trachea and central airways are clear. Mediastinum: There is no mediastinal lymphadenopathy. Paula: Clear. Axillae: There is no axillary lymphadenopathy. Upper abdomen: There is a small hiatal hernia. A left renal cyst is partially imaged. Partially visualized upper abdominal viscera is otherwise within normal limits. Skeletal structures: The skeletal structures are osteopenic. No lytic or blastic bony lesions are seen. IMPRESSION: 1. There are segmental and subsegmental pulmonary emboli within branches of the right lower lobe pulmonary artery. 2. Emphysema. 3. No airspace consolidation or pleural effusion is identified. 4. Additional findings as above. Electronically signed by: David Tobias M.D. 12/23/2016 6:52 PM Dictated Date/Time: 12/23/2016 6:46 PM Laboratory Results 12/23/16 17:18 Red Blood Count 4.24, Mean Corpuscular Volume 89.2, Mean Corpuscular Hemoglobin 30.9, Mean Corpuscular Hemoglobin Concent 34.7, Mean Platelet Volume 8.7, Neutrophils (%) (Auto) 72.1, Lymphocytes (%) (Auto) 15.2, Monocytes (%) (Auto) 8.9, Eosinophils (%) (Auto) 3.1, Basophils (%) (Auto) 0.4, Neutrophils # (Auto) 5.58, Lymphocytes # (Auto) 1.18, Monocytes # (Auto) 0.69, Eosinophils # (Auto) 0.24, Basophils # (Auto) 0.03 12/23/16 17:18 Test 12/23/16 17:18 White Blood Count 7.74 K/uL (4.8-10.8) Red Blood Count 4.24 M/uL (4.7-6.1) Hemoglobin 13.1 g/dL (14.0-18.0) Hematocrit 37.8 % (42-52) Mean Corpuscular Volume 89.2 fL (80-100) Mean Corpuscular Hemoglobin 30.9 pg (25-34) Mean Corpuscular Hemoglobin Concent 34.7 g/dl (32-36) Platelet Count 238 K/uL (130-400) Mean Platelet Volume 8.7 fL (7.4-10.4) Neutrophils (%) (Auto) 72.1 % Lymphocytes (%) (Auto) 15.2 % Monocytes (%) (Auto) 8.9 % Eosinophils (%) (Auto) 3.1 % Basophils (%) (Auto) 0.4 % Neutrophils # (Auto) 5.58 K/uL (1.4-6.5) Lymphocytes # (Auto) 1.18 K/uL (1.2-3.4) Monocytes # (Auto) 0.69 K/uL (0.11-0.59) Eosinophils # (Auto) 0.24 K/uL (0-0.5) Basophils # (Auto) 0.03 K/uL (0-0.2) RDW Standard Deviation 43.2 fL (36.4-46.3) RDW Coefficient of Variation 13.3 % (11.5-14.5) Immature Granulocyte % (Auto) 0.3 % Immature Granulocyte # (Auto) 0.02 K/uL (0.00-0.02) Prothrombin Time 11.1 SECONDS (9.0-12.0) Prothromb Time International Ratio 1.0 (0.9-1.1) Activated Partial Thromboplast Time 30.2 SECONDS (21.0-31.0) Partial Thromboplastin Ratio 1.2 Anion Gap 6.0 mmol/L (3-11) Est Creatinine Clear Calc Drug Dose 57.2 ml/min Estimated GFR () 90.3 Estimated GFR (Non- 77.9 BUN/Creatinine Ratio 20.5 (10-20) Calcium Level 8.6 mg/dl (8.5-10.1) Laboratory studies as stated above per my review. ED Course 1709: Past medical records reviewed. The patient was evaluated in room A3, and a complete history and physical examination were performed. 1723: I discussed the patient's case with Dr. Yanes, [facility] [place] [facility]. He is ok with giving the patient heparin. 175: I reevaluated the patient. He is resting comfortably. He denies rectal bleeding recently. I discussed the results and treatment plan with the patient and his son. They verbalized agreement of the treatment plan. The patient will be evaluated for further management. 1810: I [facility] The patient will be evaluated for further management. 181: Heparin Sodium/Dextrose 1 ea IV. 190: I reevaluated the patient. I informed him of his CT results. Medical Decision Differentials include, but are not limited to; DVT, infection, PE, trauma, musculoskeletal, electrolyte or metabolic abnormality. This patient comes in as described above. He was placed in room A3. He's had swelling in his right leg. He is approximately 11 days out from hernia repair. The hernia is healing well and the wound looks well. He has no fever or any changes to suggest infection. He saw his regular doctor and an ultrasound was performed in the office which showed an extensive DVT in the right lower extremity. I do think he needs to be anticoagulated. IV access established and blood work was obtained. He has normal renal function and has no acute electrolyte or metabolic abnormalities. I did discuss case with Dr. Yanes who felt there is no contraindication for anticoagulation. The patient's has had no history of GI bleed and is not on any blood thinners. I did order standard IV heparin bolus and hourly rate of IV heparin. The thought process being if he had any issues with bleeding this is the most quickly and easily reversible. He did have a CAT scan which also showed common or emboli on the right lung. I do think he needs to be admitted for further treatment and evaluation anticoagulation. I have consulted the [facility] and they saw the patient ER will admit him for these measures. Medication Reconcilliation Current Medication List: was personally reviewed by me Blood Pressure Screening Patient's blood pressure: Elevated blood pressure Follow up required. Consults Time Called: 172 Consulting Physician: Dr. Yanes, [facility] Returned Call: [phone] I discussed the patient's case with him. He is ok with giving the patient heparin. Additional Consults: Time Called: 1800 Consulted Physician: Dr. Arana [facility] hospitalist Returned Call: [phone] Additional Comments: Discussed the patient's case. The patient will be evaluated for further management. Impression Primary Impression: Pulmonary embolism Additional Impression: DVT (deep venous thrombosis) Scribe Attestation The scribe's documentation has been prepared under my direction and personally reviewed by me in its entirety. I confirm that the note above accurately reflects all work, treatment, procedures, and medical decision making performed by me. Departure Information Dispostion Being Evaluated By Hospitalist Referrals No Doctor, Assigned (PCP) Patient Instructions My [facility] Problem Qualifiers
[2016-12-23] MEDS ORDERED: HEPARIN 25000 UNIT/500 ML D5W ONE (19:27)
[2016-12-23] MEDS ORDERED: HEPARIN SOD 5000 UNIT/0.5 ML CARP ONE (19:27)
[2016-12-23 19:56] VITALS: BP 188/93; PULSE 70; TEMP 36.9; O2SAT 97
--- NOTE | 2016-12-23 20:10 | History and Physical ---
History & Physical Date & Time of Service: Dec 23, 2016 at 19:45 Chief Complaint: Possible Clot In Leg, Sent From Primary Care Physician: Neville Sosa M.D. History of Present Illness Source: patient This is a 76yo M with a PMH of Parkinson's, anxiety and a L inguinal hernia s/p surgical repair 12 days ago who presents with R LE swelling. Patient started to notice swelling from mid thigh to foot a few days ago with persistent pain, made worse with ambulation. Describes pain as "cramp-like", constant and mainly located in calf. Presented to his PCP earlier today, where an extensive DVT was found on ultrasound from the mid femoral vein to ankle. Patient had inguinal hernia repair 12 days ago and has been much more sedentary than usual during recovery process. Complains of a persistent dry cough since being discharged after procedure. Denies any lightheadedness, fever, chills, dyspnea, SOB, CP, abd pain or numbness/tingling in LE. Denies a history of DVTs/PEs and has never been on anticoagulation. Past Medical/Surgical History Medical Problems: (1) Acid reflux Status: Chronic (2) Arthritis Status: Resolved (3) Intermittent abdominal pain Status: Resolved (4) Left shoulder pain Status: Resolved (5) No known problems Status: Resolved (6) Parkinson disease Status: Chronic (7) Rash Status: Resolved (8) Rotator cuff injury Status: Resolved (9) Stomach problems Status: Chronic (10) Urinary frequency Status: Chronic Family History FH: heart disease Kidney disease Kidney stones Social History Smoking Status: Former Smoker Drug Use: none Marital Status: Occupational Status: employed Multi-Drug Resistant Organisms History of MDRO: No Allergies Coded Allergies: Latex1 -Allergic Contact Dermititis (Unverified Allergy, Intermediate, RASH, 12/23/16) Home Medications Scheduled Carbidopa/Levodopa (Sinemet 25MG/100MG), 1.5 TAB PO TIDM Ranitidine HCl (Ranitidine HCl), 150 MG PO BID Scheduled PRN Lorazepam (Lorazepam), 0.5 MG PO BID PRN for Anxiety Oxycodone/Acetaminophen 5MG/325MG (Percocet 5MG/325MG), 1 TABLET PO Q4H PRN for Pain Review of Systems Ten systems reviewed and negative except as noted in the HPI. Physical Exam Vital Signs Date Time Temp Pulse Resp B/P (MAP) Pulse Ox O2 Delivery O2 Flow Rate FiO2 12/23/16 18:55 76 16 187/89 97 Room Air 12/23/16 17:02 37.0 83 20 165/78 95 Room Air General Appearance: WD/WN (R arm resting tremor), no apparent distress Head: normocephalic, atraumatic Eyes: normal inspection, sclerae normal ENT: hearing grossly normal Neck: supple, thyroid normal, trachea midline Respiratory/Chest: chest non-tender, lungs clear, normal breath sounds, no respiratory distress, no accessory muscle use Cardiovascular: regular rate, rhythm, no murmur, normal peripheral pulses Abdomen/GI: normal bowel sounds, non tender, soft (Presence of well healing incision in L inguinal area. ) Back: normal inspection Extremities/Musculoskelatal: normal capillary refill, + calf tenderness (R calf only), + swelling (Visable swelling R>L LE from knee to ankle with associated erythema and warmth to palpation ) Neurologic/Psych: no motor/sensory deficits, alert, normal mood/affect, oriented x 3 Skin: normal color, warm/dry, no rash Diagnostics Laboratory Results Results Past 24 Hours Test 12/23/16 17:18 Range/Units White Blood Count 7.74 4.8-10.8 K/uL Red Blood Count 4.24 4.7-6.1 M/uL Hemoglobin 13.1 14.0-18.0 g/dL Hematocrit 37.8 42-52 % Mean Corpuscular Volume 89.2 80-100 fL Mean Corpuscular Hemoglobin 30.9 25-34 pg Mean Corpuscular Hemoglobin Concent 34.7 32-36 g/dl Platelet Count 238 130-400 K/uL Mean Platelet Volume 8.7 7.4-10.4 fL Neutrophils (%) (Auto) 72.1 % Lymphocytes (%) (Auto) 15.2 % Monocytes (%) (Auto) 8.9 % Eosinophils (%) (Auto) 3.1 % Basophils (%) (Auto) 0.4 % Neutrophils # (Auto) 5.58 1.4-6.5 K/uL Lymphocytes # (Auto) 1.18 1.2-3.4 K/uL Monocytes # (Auto) 0.69 0.11-0.59 K/uL Eosinophils # (Auto) 0.24 0-0.5 K/uL Basophils # (Auto) 0.03 0-0.2 K/uL RDW Standard Deviation 43.2 36.4-46.3 fL RDW Coefficient of Variation 13.3 11.5-14.5 % Immature Granulocyte % (Auto) 0.3 % Immature Granulocyte # (Auto) 0.02 0.00-0.02 K/uL Prothrombin Time 11.1 9.0-12.0 SECONDS Prothromb Time International Ratio 1.0 0.9-1.1 Activated Partial Thromboplast Time 30.2 21.0-31.0 SECONDS Partial Thromboplastin Ratio 1.2 Sodium Level 142 136-145 mmol/L Potassium Level 3.6 3.5-5.1 mmol/L Chloride Level 110 98-107 mmol/L Carbon Dioxide Level 26 21-32 mmol/L Anion Gap 6.0 3-11 mmol/L Blood Urea Nitrogen 19 7-18 mg/dl Creatinine 0.94 0.60-1.40 mg/dl Est Creatinine Clear Calc Drug Dose 57.2 ml/min Estimated GFR () 90.3 Estimated GFR (Non- 77.9 BUN/Creatinine Ratio 20.5 10-20 Random Glucose 117 70-99 mg/dl Calcium Level 8.6 8.5-10.1 mg/dl Diagnostic Radiology Chest/thorax CTA: 1. There are segmental and subsegmental pulmonary emboli within branches of the right lower lobe pulmonary artery. 2. Emphysema. 3. No airspace consolidation or pleural effusion is identified. 4. Additional findings as above. Impression Assessment and Plan This is a 76yo M with a PMH of Parkinson's, anxiety and a L inguinal hernia s/p surgical repair 12 days ago who presents with R LE swelling. R LE DVT, R subsegmental PE: -Likely 2/2 immobilization after surgery -DVT visualized on U/S at out-patient clinic -Chest/thorax CTA: Segmental and subsegmental pulmonary emboli within branches of the right lower lobe pulmonary artery -Vitals are stable. Continue monitoring closely -Therapeutic heparin initiated -Plans to discuss out-patient anticoagulation therapy options Parkinson's disease: -Follows with Dr. Mojica in clinic -Per chart review, PD is mild, primarily affecting R side with tremor and some rigidity, bradykinesia of R arm -Continue Carbidopa Levodopa Anxiety: -Stable -Continue home dose of ativan PRN GERD: -Continue ranitidine DVT Ppx: On therapeutic dose heparin Code status: FULL PCP: Dispo: Plan to return home once medically stable Attending Physician Addendum Dr. Arana I have seen and examined this patient with MALIA Reddy. This is a a 76yo M with a PMH of Parkinson's, anxiety and a L inguinal hernia s/p surgical repair 12 days ago found to have right lower extremity DVT on outpatient ultrasound. Symptoms of right leg with swelling below the knee, pain, erythema. Patient reports having dry cough. Denies shortness of breath or chest pain of fever. Patient breathing comfortably on room air in the ED. CTA of the chest shows subsegmental pulmonary embolism. Because of age and recent hernia repair, patient was admitted by ED provider to medicine hospitalist service for anticoagulation. ED provider initiated heparin drip. Patient has good renal function. Likely can be transitioned to subcutaneous Lovenox as inpatient if no evidence of bleeding versus oral anticoagulant depending on patient's prescription drug coverage and affordability of anticoagulant medication as outpatient. Will continue patient's home medications of carbidopa for Parkinson' s and ranitidine for GERD and ativan for Anxiety Level of Care Med/Surg Resuscitation Status FULL RESUSCITATION VTE Prophylaxis VTE Risk Assessment Done? Y/N: Yes Risk Level: Moderate Given or contraindicated: Unfractionated heparin SQ (Therapeutic dose for treatment of DVT/PE)
[2016-12-23] MEDS ORDERED: HEPARIN 25,000 UNIT/500ML D5W 500 ML IV PRN (20:45)
[2016-12-23] MEDS: RANITIDINE HCL 150 MG TAB PO SCH (21:33)
[2016-12-23 21:38] VITALS: BP 188/93; PULSE 70; TEMP 36.9; O2SAT 96; Ht 165.1 cm; Wt 71.0 kg
[2016-12-24 00:11] VITALS: BP 149/70; PULSE 74; TEMP 37; O2SAT 96
[2016-12-24 02:15] LABS: PARTIAL THROMBOPLASTIN RATIO 4.3
[2016-12-24 06:35] LABS: BASO % 0.8 %; BASO ABS # 0.05 K/uL (0-0.2); COMPLETE YES; EOS % 5.1 %; HEMATOCRIT 36.3 % (42-52); IG% 0.2 %; LYMPH % 16.8 %; LYMPH ABS # 1.06 K/uL (1.2-3.4); MEAN CELL VOLUME 91.2 fL (80-100); MEAN CORPUSCULAR HEMOGLOBIN 30.7 pg (25-34); MEAN CORPUSCULAR HGB CONC 33.6 g/dl (32-36); MEAN PLATELET VOLUME 9.1 fL (7.4-10.4); MONO % 9.5 %; NEUT % 67.6 %; PLATELET COUNT 257 K/uL (130-400); RED BLOOD COUNT 3.98 M/uL (4.7-6.1)
[2016-12-24 07:04] LABS: BUN/CREATININE RATIO 17.2 (10-20); CALCIUM 8.6 mg/dl (8.5-10.1); CREATININE 0.92 mg/dl (0.60-1.40)
[2016-12-24 07:07] LABS: ALB/GLOB RATIO 0.8 (0.9-2)
[2016-12-24 07:23] LABS: INR 1.1 (0.9-1.1); PARTIAL THROMBOPLASTIN RATIO 2.7; PROTHROMBIN TIME (PATIENT) 11.5 SECONDS (9.0-12.0)
[2016-12-24 08:00] VITALS: BP 163/80; PULSE 60; TEMP 36.7; O2SAT 97
[2016-12-24] MEDS: CARBIDOPA/LEVODOPA 25/100MG TAB PO SCH ×3 (09:26→17:32)
[2016-12-24] MEDS: RANITIDINE HCL 150 MG TAB PO SCH ×2 (09:26→20:52)
[2016-12-24 09:35] VITALS: BP 131/80; PULSE 67
[2016-12-24 16:00] VITALS: O2SAT 94
[2016-12-24 16:22] VITALS: BP 135/77; PULSE 77; TEMP 36.9; O2SAT 97
[2016-12-24 16:22] LABS: PARTIAL THROMBOPLASTIN RATIO 2.1
[2016-12-24] MEDS ORDERED: HEPARIN DRIP~STOP ORDER ONE (17:00)
[2016-12-24] MEDS ORDERED: RIVA1TAB7 PO (17:04)
[2016-12-24] MEDS: RIVAROXABAN TAB 15 MG TAB PO SCH (17:37)
[2016-12-24] MEDS: OXYCODONE/ACETAMINOPHEN 5-325 TAB PO PRN (20:52)
--- NOTE | 2016-12-24 21:33 | Progress Note ---
Medicine Progress Note Date & Time of Visit: Dec 24, 2016 at 10:00 . Subjective Doing well. No chest pain. No cough, hemoptysis, SOB. No melena or hematochezia. No hematuria. . Objective Last 8 Hrs Date Time Temp Pulse Resp B/P (MAP) Pulse Ox O2 Delivery O2 Flow Rate FiO2 12/24/16 16:22 36.9 77 18 135/77 (96) 97 Room Air 12/24/16 16:00 94 Room Air Physical Exam: General- no distress Neck- no JVD Lungs- clear Heart- RRR Abdomen- + BS, soft, nontender Extremities- no pretibial edema or calf tenderness Neuro- alert . Laboratory Results: Last 24 Hours Test 12/24/16 01:32 12/24/16 05:52 12/24/16 09:06 12/24/16 15:56 Activated Partial Thromboplast Time 113.0 SECONDS 69.7 SECONDS 79.0 SECONDS 55.4 SECONDS Partial Thromboplastin Ratio 4.3 2.7 3.0 2.1 White Blood Count 6.30 K/uL Red Blood Count 3.98 M/uL Hemoglobin 12.2 g/dL Hematocrit 36.3 % Mean Corpuscular Volume 91.2 fL Mean Corpuscular Hemoglobin 30.7 pg Mean Corpuscular Hemoglobin Concent 33.6 g/dl Platelet Count 257 K/uL Mean Platelet Volume 9.1 fL Neutrophils (%) (Auto) 67.6 % Lymphocytes (%) (Auto) 16.8 % Monocytes (%) (Auto) 9.5 % Eosinophils (%) (Auto) 5.1 % Basophils (%) (Auto) 0.8 % Neutrophils # (Auto) 4.26 K/uL Lymphocytes # (Auto) 1.06 K/uL Monocytes # (Auto) 0.60 K/uL Eosinophils # (Auto) 0.32 K/uL Basophils # (Auto) 0.05 K/uL RDW Standard Deviation 43.6 fL RDW Coefficient of Variation 13.1 % Immature Granulocyte % (Auto) 0.2 % Immature Granulocyte # (Auto) 0.01 K/uL Prothrombin Time 11.5 SECONDS Prothromb Time International Ratio 1.1 Sodium Level 142 mmol/L Potassium Level 4.0 mmol/L Chloride Level 110 mmol/L Carbon Dioxide Level 29 mmol/L Anion Gap 3.0 mmol/L Blood Urea Nitrogen 16 mg/dl Creatinine 0.92 mg/dl Est Creatinine Clear Calc Drug Dose 58.5 ml/min Estimated GFR () 92.7 Estimated GFR (Non- 79.9 BUN/Creatinine Ratio 17.2 Random Glucose 88 mg/dl Calcium Level 8.6 mg/dl Total Bilirubin 0.6 mg/dl Aspartate Amino Transf (AST/SGOT) 14 U/L Alanine Aminotransferase (ALT/SGPT) 21 U/L Alkaline Phosphatase 101 U/L Total Protein 6.5 gm/dl Albumin 2.9 gm/dl Globulin 3.6 gm/dl Albumin/Globulin Ratio 0.8 Assessment & Plan PULMONARY EMBOLI / DVT RLE (present on admission) Provoked VTE (recent surgery). No prior VTE. No apparent family history of VTE. No known malignancy. Hemodynamically stable. Oxygenating well. Options for anticoagulation discussed. Patient prefers DOAC. Transition from IV heparin to rivaroxaban. PARKINSON'S DISEASE Continue carbidopa / levodopa. DISPOSITION Expected discharge to home. Family Medicine follow-up with Dr. Sosa. . Current Inpatient Medications: Current Inpatient Medications Medications (Trade) Dose Ordered Sig/Bernardino Route Start Time Stop Time Status Last Admin Dose Admin Ioversol (Optiray 320) 100 ml UD PRN IV 12/23/16 18:15 12/27/16 18:14 Carbidopa/Levodopa (Sinemet 25/ 100MG Tab) 1.5 tab TIDM PO 12/24/16 08:00 01/23/17 07:59 12/24/16 17:32 1.5 TAB Lorazepam (Ativan Tab) 0.5 mg BID PRN PO 12/23/16 18:45 01/22/17 18:44 Ranitidine HCl (zANTac TAB) 150 mg BID PO 12/23/16 20:00 01/22/17 20:59 12/24/16 20:52 150 MG Oxycodone/ Acetaminophen (Percocet 5-325mg Tab) 1 tab Q4H PRN PO 12/23/16 19:00 01/06/17 18:59 12/24/16 20:52 1 TAB Rivaroxaban (Xarelto Tab) 15 mg BIDM PO 12/24/16 17:00 01/23/17 16:59 12/24/16 17:37 15 MG
[2016-12-25] VITALS: O2SAT 94
[2016-12-25 00:17] VITALS: BP 151/76; PULSE 83; TEMP 37.1; O2SAT 97
[2016-12-25 07:43] VITALS: BP 158/85; PULSE 77; TEMP 37.1; O2SAT 97
[2016-12-25 08:00] VITALS: O2SAT 97
[2016-12-25] MEDS: RANITIDINE HCL 150 MG TAB PO SCH ×2 (08:11→20:08)
[2016-12-25] MEDS: CARBIDOPA/LEVODOPA 25/100MG TAB PO SCH ×3 (08:12→16:30)
[2016-12-25] MEDS: RIVAROXABAN TAB 15 MG TAB PO SCH ×2 (08:12→16:29)
[2016-12-25] MEDS ORDERED: ONDANSETRON INJ 2 MG/ML 2 ML VIAL IV STA (10:17)
[2016-12-25] MEDS ORDERED: ONDANSETRON 4MG OD TAB PO PRN (10:30)
[2016-12-25] MEDS: OXYCODONE/ACETAMINOPHEN 5-325 TAB PO PRN (14:22)
[2016-12-25] MEDS ORDERED: LANSOPRAZOLE SOLUTAB 30 MG PO ONE (14:31)
[2016-12-25] MEDS ORDERED: METHYLPREDNISOLONE IV 40 MG in SYRINGE 0 ML IV ONE (15:00)
[2016-12-25 15:53] VITALS: BP 134/79; PULSE 80; TEMP 36.8; O2SAT 96
[2016-12-25] MEDS ORDERED: LANSOPRAZOLE SOLUTAB 30 MG PO SCH (20:00)
--- NOTE | 2016-12-25 23:19 | Progress Note ---
Medicine Progress Note Date & Time of Visit: Dec 25, 2016 at 09:00 . Subjective No fever. Experiencing some right-sided pleuritic chest pain. Occasional cough, no hemoptysis. Nauseated. No emesis, melena, hematochezia. . Objective Last 8 Hrs Date Time Temp Pulse Resp B/P (MAP) Pulse Ox O2 Delivery O2 Flow Rate FiO2 12/25/16 16:00 Room Air 12/25/16 15:53 36.8 80 18 134/79 (97) 96 Room Air Physical Exam: General- no distress Neck- no JVD Lungs- few rales right base Heart- RRR Abdomen- + BS, soft, nontender Extremities- no pretibial edema or calf tenderness Neuro- alert . Assessment & Plan PULMONARY EMBOLI / DVT RLE (present on admission) Provoked VTE (recent surgery). No prior VTE. No apparent family history of VTE. No known malignancy. Hemodynamically stable. Oxygenating well. Options for anticoagulation discussed. Patient prefers DOAC. Transitioned from IV heparin to rivaroxaban. Experiencing some right pleuritic chest pain. May benefit from short course of steroids. Start IV methylprednisolone; consider short course of prednisone. PARKINSON'S DISEASE Continue carbidopa / levodopa. DISPOSITION Expected discharge to home. Family Medicine follow-up with Dr. Sosa. . Procedures: CTA chest IV medications . Current Inpatient Medications: Current Inpatient Medications Medications (Trade) Dose Ordered Sig/Bernardino Route Start Time Stop Time Status Last Admin Dose Admin Ioversol (Optiray 320) 100 ml UD PRN IV 12/23/16 18:15 12/27/16 18:14 Carbidopa/Levodopa (Sinemet 25/ 100MG Tab) 1.5 tab TIDM PO 12/24/16 08:00 01/23/17 07:59 12/25/16 16:30 1.5 TAB Lorazepam (Ativan Tab) 0.5 mg BID PRN PO 12/23/16 18:45 01/22/17 18:44 Ranitidine HCl (zANTac TAB) 150 mg BID PO 12/23/16 20:00 01/22/17 20:59 12/25/16 20:08 150 MG Oxycodone/ Acetaminophen (Percocet 5-325mg Tab) 1 tab Q4H PRN PO 12/23/16 19:00 01/06/17 18:59 12/25/16 14:22 1 TAB Rivaroxaban (Xarelto Tab) 15 mg BIDM PO 12/24/16 17:00 01/23/17 16:59 12/25/16 16:29 15 MG Ondansetron HCl (Zofran Odt) 4 mg Q6H PRN PO 12/25/16 10:30 01/24/17 10:29 Lansoprazole (Prevacid Solutab) 30 mg BID PO 12/25/16 20:00 01/24/17 19:59 12/25/16 20:03 30 MG
[2016-12-25 23:35] VITALS: BP 161/85; PULSE 66; TEMP 36.6; O2SAT 98
[2016-12-26] VITALS: O2SAT 94
[2016-12-26 08:00] VITALS: O2SAT 95
[2016-12-26] MEDS ORDERED: METHYLPREDNISOLONE IV 20 MG in SYRINGE 0 ML IV SCH (08:00)
[2016-12-26 08:03] VITALS: BP 131/68; PULSE 74; TEMP 36.8; O2SAT 95
[2016-12-26] MEDS: RANITIDINE HCL 150 MG TAB PO SCH (08:05)
[2016-12-26] MEDS: RIVAROXABAN TAB 15 MG TAB PO SCH (08:05)
[2016-12-26] MEDS: CARBIDOPA/LEVODOPA 25/100MG TAB PO SCH ×2 (08:05→12:41)
[2016-12-26] MEDS ORDERED: RIVA1TAB7 PO (13:46)
[2016-12-26] MEDS ORDERED: METH4PAK PO (13:46)
--- NOTE | 2016-12-26 13:49 | Discharge Instructions ---
Discharge Instructions Admission Admission Date: Dec 23, 2016 at 18:51 Admission Diagnosis: Deep Vein Blood Clot Of R Lower Extremity. Discharge Care Plan - Problem: (1) DVT (deep venous thrombosis) Date of VTE Diagnosis: Dec 23, 2016 Time of VTE Diagnosis: 11:11 Care Plan - Goal(s): Decrease discomfort, Improve function Care Plan - Instructions: Activity Recommendations: limitations (as tolerated) Provider Instructions: Medication Instructions: * Warfarin is a medicine prescribed to prevent blood clots * Warfarin will thin your blood and help prevent new clots * Take your medications exactly as directed * Never skip a dose. Never take a double dose. If you miss a dose, take it as soon as you remember * It is important for your doctor to monitor your prothrombin time (PT). This is a lab test * Keep your appointment for lab tests Risk of Adverse Drug Reactions and Interactions: * Warfarin increases your risk of bleeding * The food you eat and other medications you take can affect how Warfarin works in your body * Ask your doctor about daily aspirin therapy * It is very important to talk with your doctor about all of the other medicines, antibiotics, vitamins or herbal products that you are taking * All of your medication must be approved by your doctor, including new medicines, as well as medicines you have taken before you started taking Warfarin Diet: * In order for Warfarin to work properly, it is important to keep your intake of Vitamin K as consistent as possible * You should avoid any sudden change in Vitamin K intake * Report any significant changes in your diet or weight to your doctor Call your Doctor if you experience any of the following: * Swelling or Pain in your leg * Sudden, continuous pain deep in a muscle * Pain that worsens when you are active or when you stand still for a long time * Chest Pain * Sudden Shortness of Breath * Rapid or pounding heart beat * Fainting * Dizziness * Cough with blood or bloody sputum * Sweating more than normal * Bruises * heavy or uncontrolled bleeding * Blood in your urine, stool or vomit * Black or tarry stools Caring for Your Self at Home: * Avoid sitting, standing or lying down for long periods without moving your legs and feet * When traveling by car, stop to get out and move around at least once every 3 hours * On long airplane, train or bus rides, get up and move around when possible * If you can't get up, wiggle your toes and tighten your calves to keep your blood moving Follow Up: * It is important for you to keep your follow up appointments with your medical provider. Follow-up Anticoagulation Therapy: Name and Phone number of Health professional/clinic/office monitoring the anticoagulation therapy: Next Date of PT/INR Laboratory Blood Draw: VTE Core Measures Inpt VTE Proph given/why not?: Unfractionated heparin SQ (Therapeutic dose for treatment of DVT/PE) Reason no anticoag overlap I/P: Treatment not indicated (discharge on xarelto) Reason no anticoag overlap @DC: Treatment not indicated Follow Up Follow-Up: FOLLOW UP WITH FAMILY DOCTOR ON December AT 11:05AM FOLLOWUP WITH SURGERY SCHEDULED. DURATION OF XARELTO PER FAMILY DOCTOR. Regine Ramírez Recommendations: Call your doctor if: * Temperature above 101 degrees * Pain not relieved by pain medicine ordered * There is increased drainage or redness from any incision * You have any unanswered questions or concerns. Your Doctors Instructions noted above were prepared by provider Delgado Nevarez.
[2016-12-26 13:51] VITALS: BP 131/68; PULSE 74; TEMP 36.8; O2SAT 95
--- NOTE | 2016-12-26 18:49 | Progress Note ---
Internal Med Progress Note Date of Service: Dec 26, 2016. Provider Documentation: SUBJECTIVE: resting comfortably ambulating fine afebrile eating ok wants to go home OBJECTIVE: Vital Signs-as noted below Exam: General-alert and oriented. Not in distress ENT-normal hearing Neck-no neck masses Lungs-cta b/l no wheezing or crackles Heart-s1 and s2 heard regular rate and rhythm, no murmurs Abdomen-soft bowel sounds present non tender no distension Extremities no erythema Neuro-alert and oriented moves extremities ASSESSMENT & PLAN: PULMONARY EMBOLI / DVT RLE (present on admission) Provoked VTE (recent surgery). No prior hx of VTE. No apparent family history of VTE. No known malignancy. Hemodynamically stable. pleuritic chest pain currently transitioned to xarelto discharged home on Xarelto and Medrol dose joanne f/u with pcp. PARKINSON'S DISEASE Continue carbidopa / levodopa. discharged home Vital Signs: Date Time Temp Pulse Resp B/P (MAP) Pulse Ox O2 Delivery O2 Flow Rate FiO2 12/26/16 13:51 36.8 74 16 95 Room Air 12/26/16 08:03 36.8 74 16 131/68 (89) 95 Room Air 12/26/16 08:00 95 Room Air 12/26/16 00:00 94 Room Air 12/25/16 23:35 36.6 66 18 161/85 (110) 98 Room Air
--- NOTE | 2016-12-26 19:05 | Discharge Summary ---
Discharge Summary Date of Service Dec 26, 2016. Discharge Summary Admission Date: Dec 23, 2016 at 18:51 Discharge Date: Dec 26, 2016 Discharge Disposition: Home Principal Diagnosis: DVT/PE Secondary Diagnoses/Problems: 1) Acid reflux Status: Chronic (2) Arthritis Status: Resolved (3) Intermittent abdominal pain Status: Resolved (4) Left shoulder pain Status: Resolved (5) No known problems Status: Resolved (6) Parkinson disease Status: Chronic (7) Rash Status: Resolved (8) Rotator cuff injury Status: Resolved (9) Stomach problems Status: Chronic (10) Urinary frequency Status: Chronic Procedures: CTA chest .1. There are segmental and subsegmental pulmonary emboli within branches of the right lower lobe pulmonary artery. 2. Emphysema. 3. No airspace consolidation or pleural effusion is identified. Medication Reconciliation New Medications: Methylprednisolone (Medrol Dosepak) 4 Mg Richar 1 PKT PO UD for 6 Days, #1 PKT Rivaroxaban (Xarelto Starter Pack 15 & 20 mg) 1 Tab Tab 0 PO UD, #1 PKT 2 Refills Take 15 mg twice a day with food for 21 days, then 20 mg once a day with food. Continued Medications: Carbidopa/Levodopa (Sinemet 25MG/100MG) Tab 1.5 TAB PO TIDM Lorazepam (Lorazepam) 0.5 Mg Tab 0.5 MG PO BID PRN for Anxiety Oxycodone/Acetaminophen 5MG/325MG (Percocet 5MG/325MG) Tab 1 TABLET PO Q4H PRN for Pain, #30 TAB Ranitidine HCl (Ranitidine HCl) 150 Mg Tab 150 MG PO BID Admission Information HPI (per Admitting provider): This is a 76yo M with a PMH of Parkinson's, anxiety and a L inguinal hernia s/p surgical repair 12 days ago who presents with R LE swelling. Patient started to notice swelling from mid thigh to foot a few days ago with persistent pain, made worse with ambulation. Describes pain as "cramp-like", constant and mainly located in calf. Presented to his PCP earlier today, where an extensive DVT was found on ultrasound from the mid femoral vein to ankle. Patient had inguinal hernia repair 12 days ago and has been much more sedentary than usual during recovery process. Complains of a persistent dry cough since being discharged after procedure. Denies any lightheadedness, fever, chills, dyspnea, SOB, CP, abd pain or numbness/tingling in LE. Denies a history of DVTs/PEs and has never been on anticoagulation. Physical Exam (per Admitting): General Appearance: WD/WN (R arm resting tremor), no apparent distress Head: normocephalic, atraumatic Eyes: normal inspection, sclerae normal ENT: hearing grossly normal Neck: supple, thyroid normal, trachea midline Respiratory/Chest: chest non-tender, lungs clear, normal breath sounds, no respiratory distress, no accessory muscle use Cardiovascular: regular rate, rhythm, no murmur, normal peripheral pulses Abdomen/GI: normal bowel sounds, non tender, soft (Presence of well healing incision in L inguinal area. ) Back: normal inspection Extremities/Musculoskelatal: normal capillary refill, + calf tenderness (R calf only), + swelling (Visable swelling R>L LE from knee to ankle with associated erythema and warmth to palpation ) Neurologic/Psych: no motor/sensory deficits, alert, normal mood/affect, oriented x 3 Skin: normal color, warm/dry, no rash Hospital Course PULMONARY EMBOLI / DVT RLE (present on admission) Provoked VTE (recent surgery). No prior hx of VTE. No apparent family history of VTE. No known malignancy. Hemodynamically stable. pleuritic chest pain currently transitioned to xarelto discharged home on Xarelto and Medrol dose richar f/u with pcp. PARKINSON'S DISEASE Continue carbidopa / levodopa. discharged home Total time spent on discharge = 35MINUTES This includes examination of the patient, discharge planning, medication reconciliation, and communication with other providers. Discharge Instructions Discharge Instructions Admission Admission Date: Dec 23, 2016 at 18:51 Admission Diagnosis: Deep Vein Blood Clot Of R Lower Extremity. Discharge Care Plan - Problem: (1) DVT (deep venous thrombosis) Date of VTE Diagnosis: Dec 23, 2016 Time of VTE Diagnosis: 11:11 Care Plan - Goal(s): Decrease discomfort, Improve function Care Plan - Instructions: Activity Recommendations: limitations (as tolerated) Provider Instructions: Medication Instructions: * Warfarin is a medicine prescribed to prevent blood clots * Warfarin will thin your blood and help prevent new clots * Take your medications exactly as directed * Never skip a dose. Never take a double dose. If you miss a dose, take it as soon as you remember * It is important for your doctor to monitor your prothrombin time (PT). This is a lab test * Keep your appointment for lab tests Risk of Adverse Drug Reactions and Interactions: * Warfarin increases your risk of bleeding * The food you eat and other medications you take can affect how Warfarin works in your body * Ask your doctor about daily aspirin therapy * It is very important to talk with your doctor about all of the other medicines, antibiotics, vitamins or herbal products that you are taking * All of your medication must be approved by your doctor, including new medicines, as well as medicines you have taken before you started taking Warfarin Diet: * In order for Warfarin to work properly, it is important to keep your intake of Vitamin K as consistent as possible * You should avoid any sudden change in Vitamin K intake * Report any significant changes in your diet or weight to your doctor Call your Doctor if you experience any of the following: * Swelling or Pain in your leg * Sudden, continuous pain deep in a muscle * Pain that worsens when you are active or when you stand still for a long time * Chest Pain * Sudden Shortness of Breath * Rapid or pounding heart beat * Fainting * Dizziness * Cough with blood or bloody sputum * Sweating more than normal * Bruises * heavy or uncontrolled bleeding * Blood in your urine, stool or vomit * Black or tarry stools Caring for Your Self at Home: * Avoid sitting, standing or lying down for long periods without moving your legs and feet * When traveling by car, stop to get out and move around at least once every 3 hours * On long airplane, train or bus rides, get up and move around when possible * If you can't get up, wiggle your toes and tighten your calves to keep your blood moving Follow Up: * It is important for you to keep your follow up appointments with your medical provider. Follow-up Anticoagulation Therapy: Name and Phone number of Health professional/clinic/office monitoring the anticoagulation therapy: Next Date of PT/INR Laboratory Blood Draw: VTE Core Measures Inpt VTE Proph given/why not?: Unfractionated heparin SQ (Therapeutic dose for treatment of DVT/PE) Reason no anticoag overlap I/P: Treatment not indicated (discharge on xarelto) Reason no anticoag overlap @DC: Treatment not indicated Follow Up Follow-Up: FOLLOW UP WITH FAMILY DOCTOR ON December AT 11:05AM FOLLOWUP WITH SURGERY SCHEDULED. DURATION OF XARELTO PER FAMILY DOCTOR. Regine Ramírez Recommendations: Call your doctor if: * Temperature above 101 degrees * Pain not relieved by pain medicine ordered * There is increased drainage or redness from any incision * You have any unanswered questions or concerns.
== END 2016-12-26 14:30 | disposition home or self-care (01) | DRG 314 ==
LOC: C.EDB 16:59 → C.MS4W 18:51 → ENRESERV 19:11
PROVIDERS: ADMIT Hospitalist; ATTEND Internal Medicine
DX: I97.89 Other postprocedural complications and disorders of the circulatory system, not elsewhere classified (principal); I26.99 Other pulmonary embolism without acute cor pulmonale; I82.4Z1 Acute embolism and thrombosis of unspecified deep veins of right distal lower extremity; F41.9 Anxiety disorder, unspecified; K21.9 Gastro-esophageal reflux disease without esophagitis; G20 Parkinson's disease; Z87.891 Personal history of nicotine dependence; Z82.49 Family history of ischemic heart disease and other diseases of the circulatory system; Z84.1 Family history of disorders of kidney and ureter